=== PATIENT | female | born 2000 | race Caucasian/White ===

== ENCOUNTER 2024-03-29 18:10 | Emergency (ER) | payer BC, SELFPAY ==
[2024-03-29 18:19] VITALS: BP 130/93
[2024-03-29 22:34] VITALS: BP 148/74
[2024-03-29 23:04] VITALS: BMI 19.0
[2024-03-29] MEDS: CITROMA 300 ML PO (23:05)
--- NOTE | 2024-03-29 23:13 | ED.GENMED ---
History of Present Illness
General
Chief Complaint: Bowel Problem
Source: patient
Exam Limitations: none
Time Seen by Provider: 03/29/24 21:11
Nursing documentation reviewed up to this point in time: agreed with
History of Present Illness
History of Present Illness:
24-year-old female presents to the emergency room for evaluation of constipation. Patient reports that this has been an ongoing issue for the past few months. She reports that her bowel movements are quite irregular and that she will regularly go
5 to 7 days between bowel movements. She says that when she does have bowel movements she strains on a consistent basis and that her stools are small hard edna rather than formed BMs. She has seen her primary doctor as well as a
sample sawyer. She says she was told she has IBS-C. She has tried increased fluids, regular exercise and has been consistent with these interventions. She has tried a high-fiber diet. She has tried Metamucil, MiraLAX, Colace, senna,
probiotic and none of these interventions seem to be working. She says that her doctor have told her to increase MiraLAX but she has taken 2 capsules twice a day and this does not help at all. Recently tried an enema with not relief and has not
had a bowel movement in 5 days now and so she came to the ER for assessment. She denies any abdominal pain. No vomiting. No fevers. She denies any other complaints.
Review of Systems
Review of Systems
All Other Systems: ROS reviewed and negative except as documented in HPI and ROS
Constitutional: Denies fever
Respiratory: Denies trouble breathing
Cardiac: Denies chest pain
ABD/GI: Reports abdominal pain and constipated; Denies nausea, vomiting or diarrhea
Musculoskeletal: Denies neck pain or back pain
Phy Exam
Physical Exam
Physical Exam:
General: Awake, alert, oriented x3; no acute distress
Head: Normocephalic, atraumatic
Eyes: Conjunctiva normal
Throat: Airway intact, handling secretions
Neck: Trachea midline, supple without meningismus
Lungs: Breathing comfortably no distress
Heart: Regular rate
Abd: Soft, non distended, nontender
Neuro: No gross deficits
Extremities: Warm and well-perfused
Scores
Heart Failure Risk
Heart Failure Risk Score: Not Applicable
Heart Score for Chest Pain Patients
STEMI patient?: Not applicable
Withdrawal Assessment of Alcohol
Withdrawal Assessment Completed?: Not applicable
Course
Orders/Labs/Results
Orders:
Orders
03/29/24 18:21
CR Abdomen - 1 View Urgent
Comment:
Reason For Exam: constipation
03/29/24 22:51
Magnesium Citrate [Citroma] 300 ml PO ONCE ONE
Vital Signs
Initial and Last Documented VS:
Initial Vital Signs
Temp Pulse Resp BP Pulse Ox
36.8 C 80 16 130/93 100
03/29/24 18:19 03/29/24 18:19 03/29/24 18:19 03/29/24 18:19 03/29/24 18:19
Last Documented Vital Signs
Temp Pulse Resp BP Pulse Ox
36.8 C 84 18 148/74 99
03/29/24 18:19 03/29/24 22:34 03/29/24 22:34 03/29/24 22:34 03/29/24 22:34
MDM/Problems Addressed
Differential Diagnosis Includes:
Constipation, obstruction, ileus
MDM/Problems Addressed:
24-year-old female presents to the ER for evaluation of constipation as described above refractory to multiple interventions. She has been following with PCP and Deo has a GI follow-up appointment in April and apparently plan is for
colonoscopy and potentially initiating Linzess if she continues to have constipation. She says she has not a bowel movement for 5 days and came seeking relief. X-ray of the abdomen shows no obstruction questionable ileus but significant
constipation. I offered enema here versus mag citrate�patient prefers mag citrate and will forego enema. She has already tried multiple different bowel regimens without success. Can try lactulose as she has not tried this yet. Advised to be
consistent with fluid intake, high-fiber diet, regular exercise and to call her GI to expedite follow-up if this is not helping. She feels comfortable with this plan. All questions answered.
*Radiology
Radiology exam reviewed: preliminary read by ED provider and radiology read reviewed
*Pulse Oximetry
Patient hypoxic: no
*Critical Care Note
Total Time (30-74mins, 75-104mins- exclusive of procedures): Not Applicable
Data Reviewed
Source: patient and significant other
ED Attending Note
-
Portions of this chart may have been created with voice recognition software.� Occasional wrong word or��sound alike� substitutions may have occurred due to the inherent limitations of voice recognition software.
Discharge Plan
Departure
Patient Disposition: Home (Routine Discharge)
Date of Disposition: 03/29/24
Time of Disposition: 22:51
Patient with high blood pressure during this ER visit?: No
Discharge Problem:
Constipation
Instructions: Constipation, Adult (DC)
Prescriptions:
New
lactulose 20 gram/30 mL solution
20 g PO BID Qty: 3000 0RF
No Action
albuterol sulfate [Ventolin HFA] 18 GM HFA aerosol inhaler
18 gm IH Q4HPRN PRN (Reason: SOB) Qty: 1 0RF
Referrals:
Tiffany Carr CRNP [Family Provider] -
Wendy Mcarthur MD [Active] - As needed (Follow up with your GI doctor as we discussed. If you need a new GI doctor, you can call the above number. )
Activity Restrictions/Additional Instructions:
Thank you for visiting the Emergency Department at [facility].
1. Please schedule a follow up appointment as directed. Call first thing tomorrow morning to make an appointment.
2. If indicated, please take your medications as instructed and indicated on discharge paperwork.
3. If any of your symptoms do not improve, or persist, or become more severe within 6-12 hours, please return to the emergency department for further care.
4. Please return to the emergency department if you develop a headache, neck pain/stiffness, fever greater than 100.4F, chest pain, shortness of breath, persistent nausea, vomiting, slurred speech, difficulty walking, numbness/tingling, weakness,
signs of infection or any other symptoms that are worrisome to you.
Please call [phone] if you have any questions.
Interventions
Interventions:
*Risk Screen - Suicide Last Done: 03/29/24 18:19
*General Assessment Last Done: 03/29/24 18:19
*Neglect/Abuse Screening Last Done: 03/29/24 18:19
ED- Fall Risk Assessment Last Done: 03/29/24 23:09
*ED COVID-19 Vaccine History Last Done: 03/29/24 23:09
*Nursing Disposition Last Done: 03/29/24 23:09
VU-Ehlaet-Tuyqdzeros Assessment Last Done: 03/29/24 21:10
Discharge Date and Time
Discharge Date/Time: 03/29/24 23:12
Print Language: LATVIAN
== END 2024-03-29 23:12 | disposition home or self-care (01) ==
LOC: EMR 18:10
PROVIDERS: EMERGENCY PHYSICIAN Emergency Medicine; FAMILY PHYSICIAN Nurse Practitioner Adult Health
DX: K59.00 Constipation, unspecified (principal)
CPT/HCPCS: 99283; 74018

== ENCOUNTER → 2024-04-06 17:07 | Outpatient (REF) | payer BC, SELFPAY | LOC: RAD 17:07 | PROVIDERS: ATTENDING PHYSICIAN Student in an Organized Health Care Education/Training Program; FAMILY PHYSICIAN Nurse Practitioner Adult Health | DX: R10.30 Lower abdominal pain, unspecified (principal) | CPT/HCPCS: 76700 ==

== ENCOUNTER → 2024-05-22 12:35 | Outpatient (REF) | payer BC, SELFPAY | LOC: HWRAD 12:35 | PROVIDERS: ATTENDING PHYSICIAN Nurse Practitioner Women's Health; FAMILY PHYSICIAN Nurse Practitioner Adult Health; REFERRING PHYSICIAN Student in an Organized Health Care Education/Training Program | DX: R14.0 Abdominal distension (gaseous) (principal) | CPT/HCPCS: 76830; 76856 ==

== ENCOUNTER 2024-08-02 06:25 | Day surgery (SDC) | payer BC, SELFPAY | END 2024-08-02 13:44 | disposition home or self-care (01) | LOC: GI 06:25 | PROVIDERS: ATTENDING PHYSICIAN Student in an Organized Health Care Education/Training Program | DX: R10.32 Left lower quadrant pain (principal); R19.4 Change in bowel habit; K59.00 Constipation, unspecified | CPT/HCPCS: 45378 ==